=== PATIENT | female | born 1995 | race Caucasian/White ===

== ENCOUNTER 2017-02-19 23:20 | Emergency (ER) | payer OTHER ==
[~2017-02-19 23:20] MED LIST: COLACE 100MG C100 MG PO
== END 2017-02-20 04:20 | disposition home or self-care (01) ==
LOC: ER1 23:20
DX: O23.43 Unspecified infection of urinary tract in pregnancy, third trimester (principal); O21.9 Vomiting of pregnancy, unspecified; Z3A.28 28 weeks gestation of pregnancy; Z88.8 Allergy status to other drugs, medicaments and biological substances
CPT/HCPCS: 36415; 81001; 87081; 87086; 87880; 99284; J2765

== ENCOUNTER 2017-03-19 10:14 | Outpatient (CLI) | payer OTHER | END 2017-03-19 13:46 | disposition home or self-care (01) | LOC: GENOP 10:14 | DX: O26.893 Other specified pregnancy related conditions, third trimester (principal); R10.9 Unspecified abdominal pain; Z3A.30 30 weeks gestation of pregnancy | CPT/HCPCS: 51702; 81001; 83518; 96360; 96361 ==

== ENCOUNTER 2017-04-23 01:57 | Inpatient (IN) | payer OTHER ==
[~2017-04-23] VITALS: Ht 160 cm; Wt 75.3 kg
[2017-04-23 02:43] LABS: RED BLOOD COUNT 3.96 M/UL (4.00-5.10); WHITE BLOOD COUNT 11.2 K/UL (4.5-11.0)
[2017-04-24 03:03] LABS: HEMOGLOBIN 8.4 gm/dl (12.3-15.3)
== END 2017-04-25 13:02 | disposition home or self-care (01) | DRG 766 ==
LOC: GENOP 01:57 → OB 02:16
PROVIDERS: ADMIT Obstetrics & Gynecology
PROC: 10D00Z1 Extraction of Products of Conception, Low, Open Approach (ICD-10-PCS; principal; 2017-04-23 02:33)
DX: O32.1XX0 Maternal care for breech presentation, not applicable or unspecified (principal); O42.013 Preterm premature rupture of membranes, onset of labor within 24 hours of rupture, third trimester; O34.211 Maternal care for low transverse scar from previous cesarean delivery; Z3A.36 36 weeks gestation of pregnancy; Z37.0 Single live birth
CPT/HCPCS: 36415; 82800; 85014; 85018; 85025; C9113; J0690; J1885; J2274; J2405; J2590; J2765; J3010; J3430; J7120

== ENCOUNTER → 2021-12-12 | Outpatient (CLI) | payer OTHER ==
[~2021-12-12] MED LIST changes: +BENTYL 10MG CAP10 MG PO; +IBUPROFEN600 MG PO; +KEFLEX CAP 500500 MG PO; +LORTAB 5-325 M1 EACH PO; +MEDROL DOSEPAK 24 MG PO; +PEPCID40 MG PO; +VITAMIN B-625 MG PO; +ZOFRAN4 MG PO
== END ==
LOC: LAB 18:34
DX: O20.0 Threatened abortion (principal)
CPT/HCPCS: 36415; 84702

== ENCOUNTER → 2022-01-02 | Day surgery (SDC) | payer OTHER ==
[2022-01-02 06:33] LABS: HEMOGLOBIN 12.1 gm/dl (12.3-15.3); RED BLOOD COUNT 4.61 M/UL (4.00-5.10); WHITE BLOOD COUNT 7.2 K/UL (4.5-11.0)
== END | disposition home or self-care (01) ==
LOC: OR 05:42
PROVIDERS: Obstetrics & Gynecology
DX: O02.1 Missed abortion (principal); Z88.8 Allergy status to other drugs, medicaments and biological substances; Z20.822 Contact with and (suspected) exposure to COVID-19
CPT/HCPCS: 81001; 85025; J1100; J1885; J2001; J2250; J2405; J2704; J2795; J3010; J7120; U0002

== ENCOUNTER 2022-05-16 19:42 | Emergency (ER) | payer OTHER ==
[2022-05-16 20:45] LABS: HEMOGLOBIN 13.6 gm/dl (12.3-15.3); RED BLOOD COUNT 5.05 M/UL (4.00-5.10); WHITE BLOOD COUNT 10.3 K/UL (4.5-11.0)
[2022-05-16 21:23] LABS: BUN/CREATININE RATIO 17 (0-10)
[2022-05-17] MEDS ORDERED: OMNICEF 300 MG300 MG PO (01:31)
[2022-05-17] MEDS ORDERED: REGLAN10 MG PO (01:31)
[2022-05-17] MEDS ORDERED: BENTYL 20MG TAB20 MG PO (01:31)
== END 2022-05-17 02:20 | disposition home or self-care (01) ==
LOC: ER1 19:42
PROVIDERS: Physician Assistant
DX: O21.0 Mild hyperemesis gravidarum (principal); O23.41 Unspecified infection of urinary tract in pregnancy, first trimester; N39.0 Urinary tract infection, site not specified; Z88.8 Allergy status to other drugs, medicaments and biological substances; Z3A.10 10 weeks gestation of pregnancy
CPT/HCPCS: 80053; 81001; 83735; 84702; 85025; 87086; 96374; 96375; 99284; J0696; J2765

== ENCOUNTER 2022-07-25 11:40 | Outpatient (CLI) | payer OTHER ==
[~2022-07-25 11:40] MED LIST changes: +BENTYL 20MG TAB20 MG PO; +OMNICEF 300 MG300 MG PO; +REGLAN10 MG PO
== END 2022-07-25 15:28 | disposition home or self-care (01) ==
LOC: GENOP 11:40
DX: O47.02 False labor before 37 completed weeks of gestation, second trimester (principal); Z3A.20 20 weeks gestation of pregnancy
CPT/HCPCS: 76815; 76817; 81001; 87210; 93005